=== PATIENT | female | born 1970 | race Caucasian/White ===

== ENCOUNTER 2023-11-11 09:48 | Emergency (ER) | payer OTHER, SELFPAY ==
--- NOTE | ~2023-11-11 | XR_ITS ---
EXAMINATION: XR hand RT min 3V DATE: 11/11/2023 10:13 INDICATION: Dog bite to the right hand TECHNIQUE: Posteroanterior, oblique and lateral views of the right hand were obtained. COMPARISON: None. FINDINGS: Alignment is normal. No fracture. Joint spaces are normal. Soft tissues are unremarkable. No soft tis maryann gas or radiopaque foreign body. IMPRESSION: 1. . Negative right hand radiographs. Reviewed, dictated and finalized at location B. 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
[2023-11-11 09:53] VITALS: BP 151/88; RESP 16; O2SAT 99
[2023-11-11 09:58] VITALS: TEMP 36.4
--- NOTE | 2023-11-11 10:05 | ED.ANIMALBIT ---
HPI - Animal Bite General Chief Complaint: Animal Bite Stated Complaint: dog bite Time Seen by Provider: 11/11/23 09:59 Source: patient Mode of arrival: ambulatory Limitations: no limitations History of Present Illness HPI narrative: Sydney is a 53-year-old female patient presenting to the ER today with complaints of a dog bite to her right hand happen yesterday. She has a puncture wound to the dorsal and palmar aspect of the hand. Does have some localized swelling and redness. Denies any fever or chills. Reports that the dog was her brother's dog and is up-to-date on his shots. Related Data Allergies Allergy/AdvReac Type Severity Reaction Status Date / Time adhesive tape Allergy Unknown RASH-PLASTIC Verified 11/11/23 09:58 TAPES AND PLASTIC DEVICES IE: WATCH BANDS perfume Allergy Unknown ASTHMA Verified 11/11/23 09:58 EPISODES [facility] Allergy Unknown ASTHMA Uncoded 12/02/21 08:49 EPISODES Review of Systems Review of Systems: Pertinent positives per HPI. Patient denies any fever, chills, rash, headache, visual changes, dizziness, cough, runny nose, sore throat, shortness of breath, chest pain, palpitations, nausea, vomiting, diarrhea, constipation, abdominal pain, or any urinary issues. [facility] Past Medical History Medical History History of lipoma removed Family History Family History Son Asthma Sibling Asthma Other Breast cancer Grandparent Depression Diabetes mellitus Malignant neoplasm of prostate Father Diabetes mellitus Hypertension Social History Social History Smoking status: Current every day smoker Tobacco type: cigarettes Second hand tobacco smoke exposure: Yes Alcohol intake: current Alcohol use details: Maybe 2x a year Substance use: never Substance use type: does not use Living arrangements: with family Occupation/Education: unemployed Gender identity (if verbalized by the patient): Female Sexual Orientation (if Verbalized by the Patient): Straight or Heterosexual Spiritual care concerns: No Agree to blood products: Yes Comments At the time of my signature, I reviewed and agree with the nursing past medical, surgical, social, and family history. There is no relevant family history pertinent to the patient complaint. Exam Narrative: General: Well-developed, well nourished, in no apparent distress Head: Normocephalic, atraumatic. Cardio: Regular rate and rhythm, s1 and s2 normal, no murmur appreciated. Resp: Clear to auscultation bilaterally, no rhonchi, rales, wheezing or rubs. Musculoskeletal: No deformity, tender to palpation over the proximal dorsal and palmar aspect of the hand with puncture wound, no discharge, mild redness and swelling noted around the wounds, mild tenderness to palpation, able to flex and extend all fingers, grossly normal range of motion, muscle strength strong and equal, peripheral pulse strong, no cyanosis, normal gait and station Course Course Emergency Course: Portions of this record may have been created with voice recognition software. Vital Signs Vital signs: Vital Signs Respiratory Rate 16 11/11/23 09:53 Blood Pressure 151/88 H 11/11/23 09:53 Pulse Oximetry 99 11/11/23 09:53 Oxygen Delivery Room Air 11/11/23 09:53 Temperature 36.4 C L 11/11/23 09:58 Respiratory Rate 16 11/11/23 09:53 Blood Pressure 151/88 H 11/11/23 09:53 Pulse Oximetry 99 11/11/23 09:53 Oxygen Delivery Room Air 11/11/23 09:53 Vital signs reviewed MDM - Animal Bite MDM Narrative Medical decision making narrative: At the time of visit patient is resting comfortably on the exam table. Patient appears to be nontoxic. Diagnostics: Right hand x-rays negative for any sign of fractur
[2023-11-11 10:25] VITALS: BP 128/89; PULSE 96; RESP 16; O2SAT 98
== END 2023-11-11 10:26 | disposition home or self-care (01) ==
LOC: ANHED 10:20
PROVIDERS: Emergency Provider Nurse Practitioner Family; PCP Family Medicine Adolescent Medicine
DX: S61.451A Open bite of right hand, initial encounter (principal); F17.210 Nicotine dependence, cigarettes, uncomplicated; W54.0XXA Bitten by dog, initial encounter
CPT/HCPCS: 73130; 99283